=== PATIENT | female | born 1990 | race Caucasian/White ===

== ENCOUNTER 2019-04-10 17:04 | Emergency (ER) | payer BC, OTHER ==
[2019-04-10 17:54] LABS: Bilirubin Negative (Negative); Blood, Urine Negative (Negative); Clarity Turbid (Clear); Glucose, Urine (Dipstick) Normal (Negative); Leukocyte 500 Leu/uL (Negative); Mucous/LPF 1+ LPF (<2+); Nitrite Negative (Negative); Protein, Urine (Dipstick) 30 mg/dL (Neg-Trace); WBC/HPF 21-50 HPF (0-3)
[2019-04-10 18:00] LABS: Pregnancy Test - Urine (BHCG) Negative (Negative); Pregu Control Background? CLEAR/WHITE (CLR/WHITE); Pregu Control Bar Appear? YES (CONTROL BAR); Specific Gravity 1.023 (1.002-1.036)
[2019-04-10 18:02] LABS: Bacteria/HPF 1+ HPF (None Seen)
[2019-04-14 03:42] LABS: Chlamydia by PCR Not Detected (NotDetected); GC by PCR Not Detected (NotDetected)
== END 2019-04-10 18:45 | disposition home or self-care (01) ==
LOC: ERS 17:04
DX: N39.0 Urinary tract infection, site not specified (principal); L73.9 Follicular disorder, unspecified
CPT/HCPCS: 81003; 81015; 81025; 87086; 87480; 87491; 87510; 87591; 87660; 99283

== ENCOUNTER 2019-12-11 16:01 | Inpatient (IN) | payer OTHER ==
[2019-12-11 16:55] VITALS: BMI 26.4
[2019-12-11] MEDS ORDERED: Lidocaine 1% (PF) 30 ML VIAL SC PRN (17:13)
[2019-12-11] MEDS ORDERED: Ondansetron PF 4 MG/2 ML Vial IVP PRN (17:13)
[2019-12-11] MEDS ORDERED: hydrALAZINE 20 MG/ML VIAL SLOW IVP PRN (17:13)
[2019-12-11] MEDS ORDERED: Promethazine HCl 25 MG/ML VIAL IM PRN (17:13)
[2019-12-11] MEDS ORDERED: Acetaminophen 500 MG TAB PO PRN (17:13)
--- NOTE | 2019-12-11 17:20 | PDOC.LDHP ---
Labor and Delivery H&P Chief complaint: other (BMX and monitoring) HPI: 28 yo WF here from Dr. Casillas for steroids and continuous monitoring with h/o cholestasis of . Denies SROM, bleeding, decreased FM. Current gestational age (weeks): 35 Due date: 01/14/20 Dating criteria: last menstrual period Grav: 2 Para: 1 OB History Details: h/o of induction with at 35 weeks 2* to cholestasis, Dr. Mcclellan. Current complications: other (cholestasis as above, recent BA= [address] Casillas) Abnormal US findings: No Past Medical History: none Current medications: pre- vitamins, other (cholestiremine 300 TID) Previous surgical history: other (T&A clavicle) Allergies/Adverse Reactions: Allergies Allergy/AdvReac Type Severity Reaction Status Date / Time No Known Allergies Allergy Verified 09/12/15 10:44 Social history: none - Physical Exam Vital signs reviewed and normal: yes General: resting Heart: RRR Lungs: CTAB Abdomen: gravid Extremeties: trace edema FHT: category 1 Nason contractions every: no - OB Labs GBS: unknown - Assessment 35 week IUP, cholestasis of - Plan Plan: observation in L&D, other (continuous monitoring and steroids per Dr. Casillas)
[2019-12-11] MEDS: Betamet Acet/Betamet Na Ph 30 MG/5 ML VIAL IM SCH (17:42)
[2019-12-12 08:31] LABS: #Lymphocytes 1.5 thou/uL (1.20-3.40); #Monocytes 0.9 thou/uL (0.11-0.59); #Neutrophils 10.4 thou/uL (1.40-6.50); %Basophils 0.2 % (0.0-1.0); %Eosinophils 0.2 % (0.0-10.0); %Monocytes 7.2 % (0.0-10.0); %Neutrophils 80.5 % (42.0-75.0); Hemoglobin 10.8 g/dL (12.0-16.0); Mean Corpuscular HGB CONC 32.5 g/dL (32.0-36.0); Mean Corpuscular Hemoglobin 25.1 pg (27.0-31.0); Mean Corpuscular Volume 77.2 fL (78.0-98.0); Mean Platelet Volume 8.2 fL (7.4-10.4); Platelet Count 301 thou/uL (130-400); RBC Distribution Width 14.4 % (11.5-14.5); White Blood Cell (WBC) Count 12.9 thou/uL (4.8-10.8)
[2019-12-12] MEDS: Ursodiol 300 MG CAP PO SCH ×3 (08:48→17:45)
[2019-12-12 08:51] LABS: ALT (SGPT) 124 U/L (8-55); AST (SGOT) 82 U/L (5-34); Albumin 3.3 g/dL (3.5-5.0); Alkaline Phosphatase 178 U/L (40-110); Anion Gap 19 mmol/L (10-20); BUN (Urea Nitrogen) 7 mg/dL (7.0-18.7); Bilirubin, Total 0.6 mg/dL (0.2-1.2); Calc. Creatinine Clearance 163 mL/min (70-130); Calcium 9.5 mg/dL (7.8-10.44); Carbon Dioxide 17 mmol/L (22-29); Chloride 104 mmol/L (98-107); Estimated GFR-MDRD Greater than 90; Glucose 93 mg/dL (70-105); Protein, Total 7.3 g/dL (6.0-8.3); Sodium 136 mmol/L (136-145)
--- NOTE | 2019-12-12 09:29 | PDOC.LDPN ---
Labor & Delivery Progress Note - Subjective Subjective: comfortable (itching has improved, no PIH sx. Good FM) - Objective Vital signs reviewed and normal: yes General: NAD FHT: category 1 -: 35w2d with cholestasis of Severely elevated bile acids of 133, LFT elevated. BP wnl. On ursodiol, cont. BPP today, continuous monitoring. BMZ x 2 for prematurity Will likely do IOL following BMZ tonight for risk of IUFD in 3T. Cont L&D care.
--- NOTE | 2019-12-12 10:04 | ULT ---
ULTRASOUND BIOPHYSICAL PROFILE: HISTORY: distress FINDINGS: A single live intrauterine gestation is seen. heart rate:145bpm FELI: 14.9 cm Placenta: Anterior without placenta previa OB biophysical profile: tone: 0 breathin movements: 2 Amniotic fluid: 2 IMPRESSION: The ultrasound biophysical profile score is 6 out of 8.
[2019-12-12 13:04] LABS: SARS-CoV-2 MS2 Positive; SARS-CoV-2 N Gene Negative; SARS-CoV-2 S Gene Negative; SARS-CoV-2 by NAA Not Detected (NotDetected); SARS-CoV-2 orf1ab Negative
[2019-12-12] MEDS: Betamet Acet/Betamet Na Ph 30 MG/5 ML VIAL IM SCH (17:46)
--- NOTE | 2019-12-13 15:28 | PDOC.LDPN ---
Labor & Delivery Progress Note - Subjective Subjective: comfortable - Objective Vital signs reviewed and normal: yes General: NAD Uterine fundus: non tender Dilation: 1 Effacement: 50% Station: -2 FHT: category 1 -: 28yo at 35w3d by LMP with severe cholestasis Bile acids pending, last were 133, LFT elevated, on ursodiol FHT Cat 1 Feel that risk of IUFD outweighs benefit of continuing s/p BMZ x 2 IOL tonight in therapeutic window of steroids.
[2019-12-13] MEDS: Ursodiol 300 MG CAP PO SCH (16:51)
[2019-12-13] MEDS ORDERED: Carboprost 250 MCG/ML AMP IM PRN (18:49)
[2019-12-13] MEDS ORDERED: NS / Oxytocin 40 units/1000ml 1,000 ML IV PRN (18:49)
[2019-12-13] MEDS ORDERED: Diphenoxylate HCl/Atropine Tablet PO PRN (18:49)
[2019-12-13] MEDS ORDERED: Methylergonovine 0.2 MG/ML VIAL IM PRN (18:49)
[2019-12-13] MEDS ORDERED: Lidocaine 1% (PF) 30 ML VIAL SC PRN (18:49)
[2019-12-13] MEDS ORDERED: Ondansetron PF 4 MG/2 ML Vial IVP PRN (18:49)
[2019-12-13] MEDS ORDERED: Promethazine HCl 25 MG/ML VIAL IM PRN (18:49)
[2019-12-13] MEDS ORDERED: Ibuprofen 800 MG TAB PO PRN (18:49)
[2019-12-13] MEDS ORDERED: HYDROcodone/Acetaminophen 5/325 mg Tablet PO PRN (18:49)
[2019-12-13] MEDS ORDERED: Butorphanol Tartrate 1 MG/ML VIAL SLOW IVP PRN (18:49)
[2019-12-13] MEDS ORDERED: hydrALAZINE 20 MG/ML VIAL SLOW IVP PRN (18:49)
[2019-12-13] MEDS ORDERED: Misoprostol 200 MCG TAB PR PRN (18:49)
[2019-12-13] MEDS ORDERED: Penicillin G Potassium 5 MILL.UNITS in Sodium Chloride 0.9% 100 ML IVPB SCH (19:00)
[2019-12-13 20:18] LABS: Hemoglobin 9.3 g/dL (12.0-16.0); Mean Corpuscular HGB CONC 32.6 g/dL (32.0-36.0); Mean Corpuscular Volume 76.7 fL (78.0-98.0); Mean Platelet Volume 8.6 fL (7.4-10.4); Platelet Count 293 thou/uL (130-400); RBC Distribution Width 14.7 % (11.5-14.5); Red Blood Cell (RBC) Count 3.73 mill/uL (4.20-5.40); White Blood Cell (WBC) Count 15.2 thou/uL (4.8-10.8)
[2019-12-13] MEDS: Misoprostol 100 MCG TAB VAG SCH (20:42)
[2019-12-13] MEDS: Lactated Ringer's 1,000 ML IV SCH (20:42)
[2019-12-13 20:53] LABS: Syphilis Antibody Nonreactive (Nonreactive); Syphilis Antibody Index 0.03 S/CO (<1.00 Non-Reactive)
[2019-12-13] MEDS: NS w/ Oxytocin 10 units 500 ML IV SCH (21:48)
[2019-12-13] MEDS: Penicillin G 2.5 MILL.units 2.5 MILL.UNITS in Premix Bag 1 BAG IVPB SCH (21:49)
[2019-12-14 00:29] LABS: HBSAg Index 0.13 S/CO (0-0.99); Hep B Surf Ag Non-Reactive S/CO (NonReactive)
[2019-12-14] MEDS: Penicillin G 2.5 MILL.units 2.5 MILL.UNITS in Premix Bag 1 BAG IVPB SCH ×4 (00:37→16:15)
[2019-12-14] MEDS: Misoprostol 100 MCG TAB VAG SCH ×3 (00:37→16:14)
[2019-12-14] MEDS: Lactated Ringer's 1,000 ML IV SCH ×2 (03:46→16:14)
[2019-12-14] MEDS: NS w/ Oxytocin 10 units 500 ML IV SCH (06:23)
[2019-12-14] MEDS ORDERED: Fentanyl 4 mcg/Bup 0.1% Cadd 100 ML ONE (07:36)
[2019-12-14] MEDS ORDERED: Ondansetron PF 4 MG/2 ML Vial IVP PRN ×2 (08:02→17:09)
[2019-12-14] MEDS ORDERED: Acetaminophen 325 MG TAB PO PRN (08:02)
[2019-12-14] MEDS ORDERED: Lactated Ringer's 500 ML IV PRN (08:02)
[2019-12-14] MEDS ORDERED: EPHEDRINE 25 MG/5 ML SYRINGE SLOW IVP PRN (08:02)
[2019-12-14] MEDS ORDERED: Promethazine HCl 25 MG/ML VIAL IM PRN (08:02)
[2019-12-14] MEDS ORDERED: Naloxone HCl 0.4 mg/ml Vial IVP PRN ×2 (08:02)
[2019-12-14] MEDS ORDERED: diphenhydrAMINE 50 MG/ML VIAL IVP PRN (08:02)
[2019-12-14] MEDS ORDERED: Communication Order-Pharmacy FS SCH (08:15)
[2019-12-14] MEDS ORDERED: Fentanyl 4 mcg/Bupivacaine 0.1% Cassette 100 ML EPIDURAL SCH (08:15)
[2019-12-14] MEDS: Ursodiol 300 MG CAP PO SCH ×4 (09:07→20:07)
[2019-12-14] MEDS ORDERED: Lidocaine 1% (PF) 30 ML VIAL ONE (11:29)
[2019-12-14] MEDS ORDERED: NS / Oxytocin 40 units/1000ml 1,000 ML ONE (11:29)
--- NOTE | 2019-12-14 16:39 | PDOC.OPDEL ---
OB Operative/Delivery Note Delivery Dr/Surgeon: Sonja Assist: n/a Pre-Delivery Diagnosis: other (cholestasis) Procedure/Post Delivery Dx: spontaneous vaginal delivery Weeks gestation: 35 Anesthesia: epidural - Findings A Sex: male Weight: 6 lb 13 oz - 1 min: 7 - 5 min: 9 - Additional Findings/Plan Placenta delivered: spontaneous Repaired Obstetrical Laceration: none Estimated blood loss: 200 Post delivery plan: routine recovery
[2019-12-14] MEDS ORDERED: Preparation H Ointment 28 GM TUBE PR PRN (17:09)
[2019-12-14] MEDS ORDERED: HYDROcodone/Acetaminophen 5/325 mg Tablet PO PRN ×2 (17:09)
[2019-12-14] MEDS ORDERED: NS / Oxytocin 40 units/1000ml 1,000 ML IV SCH (17:09)
[2019-12-14] MEDS ORDERED: diphenhydrAMINE 25 MG CAP PO PRN (17:09)
[2019-12-14] MEDS ORDERED: hydrALAZINE 20 MG/ML VIAL SLOW IVP PRN (17:09)
[2019-12-14] MEDS ORDERED: Lanolin Ointment 7 GM TUBE TOP PRN (17:09)
[2019-12-14] MEDS ORDERED: Bisacodyl 10 MG SUPP PR PRN (17:09)
[2019-12-14] MEDS ORDERED: Benzocaine-Menthol 82.5 ML CAN TOP PRN (17:09)
[2019-12-14] MEDS ORDERED: Milk Of Magnesia 30 ML UDCUP PO PRN (17:09)
[2019-12-14] MEDS ORDERED: Ferrous Sulfate 325 MG TAB PO SCH (17:45)
[2019-12-14] MEDS: Ibuprofen 800 MG TAB PO SCH ×2 (21:30→21:32)
[2019-12-14] MEDS: Docusate Calcium (SURFAK) 240 MG CAP PO SCH ×2 (21:30→21:33)
[2019-12-14] MEDS: Ibuprofen 100 MG/5 ML UDCUP PO SCH (22:10)
[2019-12-15] MEDS: Ibuprofen 100 MG/5 ML UDCUP PO SCH ×3 (05:10→21:45)
--- NOTE | 2019-12-15 08:04 | PDOC.PP ---
Post Progress Note Post Day #: 1 Subjective: doing well, baby in NICU, no concerns PO intake tolerated: yes Flatus: yes Ambulation: yes Vital Signs (12 hours) Temp Pulse Resp BP Pulse Ox 12/15/19 07:41 98.2 F 62 20 130/70 97 12/15/19 04:06 98.4 F 65 18 129/73 96 Weight Weight 174 lb - Physical Examination General: NAD Abdominal: no distention Fundus firm & at: below umb Psychiatric: A&Ox3, normal affect Result Diagrams: 12/13/19 19:52 12/12/19 08:20 Additional Labs: Post Labs Hep Bs Antigen Non-Reactive S/CO (NonReactive) 12/13/19 19:52 Blood Type O POSITIVE 12/13/19 19:52 - Assessment/Plan PP1 sp IOL for cholestasis, doing well.
[2019-12-15] MEDS ORDERED: Adacel (T-DAP) 0.5 ML SYRINGE IM ONE (09:00)
[2019-12-15] MEDS: Ferrous Sulfate 325 MG TAB PO SCH ×2 (09:32→16:32)
[2019-12-15] MEDS: Prenatal Vitamin 1 TAB PO SCH (09:33)
[2019-12-15] MEDS: Docusate Calcium (SURFAK) 240 MG CAP PO SCH ×2 (09:33→20:24)
[2019-12-16] MEDS: Ibuprofen 100 MG/5 ML UDCUP PO SCH ×2 (05:30→17:18)
--- NOTE | 2019-12-16 06:06 | PDOC.PP ---
Post Progress Note Post Day #: 2 Subjective: Patient eager to go home without complaints this AM. PO intake tolerated: yes Ambulation: yes Vital Signs (12 hours) Temp Pulse Resp BP Pulse Ox 12/15/19 20:01 98.1 F 62 12 121/58 L 97 Weight Weight 78.925 kg - Physical Examination General: NAD Respiratory: non-labored breathing Neurological: no gross focal deficits Psychiatric: A&Ox3, normal affect Result Diagrams: 12/13/19 19:52 12/12/19 08:20 Additional Labs: Post Labs Hep Bs Antigen Non-Reactive S/CO (NonReactive) 12/13/19 19:52 Blood Type O POSITIVE 12/13/19 19:52 (1) Status post induction of labor Code(s): Z98.89 - OTHER SPECIFIED POSTPROCEDURAL STATES * DO NOT USE * Status: Acute (2) Vaginal delivery Code(s): O80 - ENCOUNTER FOR FULL-TERM UNCOMPLICATED DELIVERY Status: Acute - Assessment/Plan PP day #2 s/p IOL for cholestasis in . Doing well. Read yfor d/c home today. Follow-up with PCP in 6 weeks for routine PP visit. Addendum - Attending - Attending Attestation Date/Time: 12/16/19 0718 I personally evaluated the patient and discussed the management with Dr. King. I agree with the History, Examination, Assessment and Plan documented above.
[2019-12-16 08:24] VITALS: BP 127/63; TEMP 98.6
[2019-12-16] MEDS: Prenatal Vitamin 1 TAB PO SCH (09:27)
[2019-12-16] MEDS: Docusate Calcium (SURFAK) 240 MG CAP PO SCH (09:27)
[2019-12-16] MEDS: Ferrous Sulfate 325 MG TAB PO SCH ×2 (09:47→17:20)
== END 2019-12-16 19:10 | disposition home or self-care (01) | DRG 805 ==
LOC: L&D/OP 16:01 → L&D 22:46 → INTOOBSV 22:46 → OBSVTOIN 12-13 18:53 → L&D 12-13 22:40 → 3SE 12-14 17:43
PROVIDERS: ADMIT Student in an Organized Health Care Education/Training Program; ATTEND Student in an Organized Health Care Education/Training Program
PROC: 10E0XZZ Delivery of Products of Conception, External Approach (ICD-10-PCS; principal; 2019-12-14)
PROC: 10907ZC Drainage of Amniotic Fluid, Therapeutic from Products of Conception, Via Natural or Artificial Opening (ICD-10-PCS; 2019-12-14)
PROC: 3E033VJ Introduction of Other Hormone into Peripheral Vein, Percutaneous Approach (ICD-10-PCS; 2019-12-14)
DX: O26.62 Liver and biliary tract disorders in childbirth (principal); K83.1 Obstruction of bile duct; Z37.0 Single live birth; Z3A.35 35 weeks gestation of pregnancy; O99.824 Streptococcus B carrier state complicating childbirth; Z20.828 Contact with and (suspected) exposure to other viral communicable diseases
CPT/HCPCS: 36415; 51702; 76819; 80053; 82239; 85025; 85027; 86780; 86850; 86900; 86901; 87340; 87635; 99285; J0702; J2001; J2540; J2590; J3490; U0003

== ENCOUNTER 2020-04-18 10:04 | Day surgery (SDC) | payer OTHER ==
[2020-04-15 13:07] VITALS: BMI 22.5
[2020-04-15 14:21] LABS: BHCG - Serum Negative (NEGATIVE); Pregs Control Background? CLEAR/WHITE (CLR/WHITE); Pregs Control Bar Appear? YES (CONTROL BAR)
[2020-04-16 13:06] LABS: SARS-CoV-2 PCR by NAA Not Detected (NotDetected)
[~2020-04-18 10:04] MED LIST: Dexamethasone 20 MG/5 ML VIAL ONE; Glycopyrrolate 0.2 MG/ML 5 ML SYRINGE ONE; Lidocaine 1% PF 5 ML VIAL ONE; Ondansetron PF 4 MG/2 ML Vial ONE; PROPOFOL 200 MG/20 ML VIAL ONE; Rocuronium Bromide 10 MG/ML (10ML VIAL) ONE
[2020-04-18] MEDS ORDERED: Famotidine/PF 20 mg/2ml Vial ONE ×3 (10:38→11:49)
[2020-04-18] MEDS ORDERED: Gabapentin 300 MG CAP ONE (10:38)
[2020-04-18] MEDS ORDERED: CeleCOXIB 100 MG CAP ONE ×2 (10:38→10:39)
[2020-04-18] MEDS ORDERED: Fentanyl 250 MCG/5 ML VIAL ONE (11:42)
[2020-04-18] MEDS ORDERED: Bupivacaine PF 0.5% 30 ML VIAL ONE (11:44)
[2020-04-18] MEDS ORDERED: EPINEPHrine 1 MG/ML AMP ONE (11:44)
[2020-04-18] MEDS ORDERED: Midazolam HCl 2 mg/2 ml Vial ONE (11:56)
--- NOTE | 2020-04-18 14:16 | OP ---
DATE OF PROCEDURE: 04/18/2020 PREOPERATIVE DIAGNOSES: 1. Sterilization. 2. Family history of breast cancer. POSTOPERATIVE DIAGNOSES: 1. Sterilization. 2. Family history of breast cancer. PROCEDURE PERFORMED: Laparoscopic bilateral salpingectomy. ANESTHESIA: General endotracheal. WARP DRAWER SURGEON: None. ESTIMATED BLOOD LOSS: 15 mL. URINE OUTPUT: 100 mL clear urine. COMPLICATIONS: None. DRAINS: None. PATHOLOGY: Bilateral fallopian tubes. FINDINGS: Normal-appearing fallopian tubes bilaterally. The left fallopian tube and ovary were adherent to the left uterosacral ligament. During the lysis of the adhesion of the ovary to the uterosacral ligament, the ovary became oozy and this was hemostatic with cautery, and Mei was placed. DESCRIPTION OF PROCEDURE: The patient was taken to the operating room, where general anesthesia was obtained without difficulty. The patient was prepped and draped in a sterile fashion in dorsal lithotomy position. Mendez catheter was placed in the bladder. A speculum was placed in the vagina. The anterior lip of the cervix was grasped with single-tooth tenaculum. The single-tooth [employer] manipulator was then placed into the cervix and the tenaculum was removed off the cervix. The speculum was removed. Legs were placed in low lithotomy. Attention was turned to the abdomen. A 0.5% bupivacaine with 0.15 mL of epi mixture was infiltrated into the umbilicus and a 5 mm skin incision was made. The Veress needle was passed into the abdomen, noting an opening pressure of 3 mmHg. Pneumoperitoneum was obtained. The Veress needle was removed. The 5 mm trocar was advanced to the abdomen optically with a 5 mm camera. Trendelenburg was obtained and above findings were noted. Right and left lower quadrant 5 mm trocars were placed under direct visualization after infiltrating with anesthetic. The right fallopian tube was grasped and elevated at the distal end. The [place] LigaSure was used to cauterize and incise the mesosalpinx from lateral to medial. The medial portion of the fallopian tube was then clamped across, cauterized, incised, and the fallopian tube was placed in the anterior cul-de-sac. The left fallopian tube was grasped as it was adherent to the left uterosacral ligament. This was able to be easily peeled away from its adhesive spot, and small cyst of Morgagni was also contained with it and this was removed also and sent with the final specimen. The left fallopian tube was elevated at the distal end and from lateral to medial, the LigaSure was used to cauterize and incise the mesosalpinx. The medial portion of the fallopian tube was clamped across, cauterized, incised, and the fallopian tube was placed in the anterior cul-de-sac. At that time, during the manipulation and the peeling away of the fallopian tube and ovary from its adherent site on the left of the uterosacral ligament, there was some oozing noted of the left ovary. The LigaSure was used to try and obtain hemostasis of that area. However, this was unsuccessful. There was still slow amount of oozing that was clinically significant. Therefore, the Megadyne was then called for and used to cauterized the raw edges of the ovary. Irrigation was performed of this area as well as the surgical site in the pelvis and hemostasis was noted to be adequate. Mei was placed over the ovary and the surgical site as well to further secure hemostasis. The fallopian tubes were then brought out of each 5 mm trocar successfully and pneumoperitoneum was released. All instruments were removed out of the abdomen. The skin was closed with 4-0 Monocryl in a subcuticular fashion. A single-tooth Hulka was then removed out of the cervix. The speculum was placed in the vagina and the tenaculum sites were noted to be oozing quite briskly. After the Bovie was used to cauterize these area on the cervix noting excellent hemostasis, all instruments removed out of the vagina. The patient tolerated the procedure well. Sponge, lap, and needle counts correct x2. The patient was taken to recovery room in stable condition. Mendez catheter was removed out of the bladder prior to the patient leaving the operating room. Job ID: [id number]
== END 2020-04-18 15:05 | disposition home or self-care (01) ==
LOC: SDC 10:04
PROVIDERS: ATTEND Student in an Organized Health Care Education/Training Program
PROC: 0UT74ZZ Resection of Bilateral Fallopian Tubes, Percutaneous Endoscopic Approach (ICD-10-PCS; principal; 2020-04-18)
DX: Z30.2 Encounter for sterilization (principal); N83.8 Other noninflammatory disorders of ovary, fallopian tube and broad ligament; Z80.3 Family history of malignant neoplasm of breast; Z15.01 Genetic susceptibility to malignant neoplasm of breast
CPT/HCPCS: 84703; 86850; 86900; 86901; 87635; 88305; J0171; J1100; J2250; J2405; J2704; J3010; S0020; S0028; U0003; U0005

== ENCOUNTER 2024-12-22 16:56 | Emergency (ER) | payer SELFPAY | END 2024-12-22 18:52 | disposition home or self-care (01) | LOC: ERS 16:56 | DX: S93.401A Sprain of unspecified ligament of right ankle, initial encounter (principal); X50.9XXA Other and unspecified overexertion or strenuous movements or postures, initial encounter; Y93.61 Activity, american tackle football | CPT/HCPCS: 99283 ==